=== PATIENT | female | born 2005 | race Two or more races ===

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

== ENCOUNTER 2024-11-29 17:29 | Emergency (ER) | payer MEDICAID ==
[~2024-11-29] VITALS: Ht 157.5 cm; Wt 59.0 kg
--- NOTE | 2024-11-29 17:40 | ECG ---
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
--- NOTE | 2024-11-29 17:48 | ED.PDOC ---
HPI (NEURO) HPI Comments HPI: Poor Historian. 19-year-old female brought in by ambulance from home after a near syncopal episode. There was no loss of consciousness. Patient was busy doing school work standing and she started feeling lightheaded. She assisted herself to the ground. There was no fall or trauma or injury. Patient states that this happens sometimes when she is dehydrated and with the heat exhaustion. EMS described that the home she was in has no air conditioning and it was extremely hot inside the house. Patient has not been drinking enough fluids today. Pre- hospital course vital signs were stable per EMS. Blood sugar was normal. Patient denies any pain or any other symptoms. Past Medical History: Heart murmur Past Surgical History: Denies any REVIEW OF SYSTEMS: CONSTITUTIONAL: Denies acute: fever, diaphoresis, chills, HEAD: Denies acute: headache, photophobia Eyes: Denies acute: Double vision, vision loss, eye pain, eye discharge. EARS: Denies acute: tinnitus, hearing loss, ear discharge, ear pain, THROAT: Denies acute: sore throat, swelling, difficulty swallowing , pain with swallowing, change in voice. NECK: Denies acute: neck pain, neck swelling, stiff neck. HEART: Denies acute : chest pain, palpitations, LUNGS: Denies acute: SOB, wheezing, cough, hemoptysis ABDOMEN: Denies acute: abdominal pain, Nausea, Vomiting, diarrhea, melena , hematemesis, hematochezia SKIN: Denies acute: rash, redness, lesions, itchiness. EXTREMITIES: Denies acute: calf pain, numbness, tingling, weakness, denies pain in extremity. Denies acute: Low back pain. Neuro: Denies acute: focal neurological deficit, motor or sensory focal neurological deficit, tremors, seizure like activity, confusion, change in mental status, loss of bowel or bladder function, cauda equina like symptoms. : Denies acute: dysuria, hematuria, flank pain, increase in urinary frequency. PSYCH: Denies acute: hallucination, suicidal ideation, homicidal ideation. FEMALE: Denies acute: abnormal vaginal bleeding, foul odor, unusual discharge. PHYSICAL EXAM: General: ----no----acute distress, awake and alert. Head: normocephalic, atraumatic. Neck: supple, trachea is midline, no swelling. Throat: Normal phonation. Eyes:, no erythema, no purulent discharge, no proptosis, no icterus. Heart: regular rate, regular rhythm, no significant murmur appreciated. Lungs: no apparent respiratory distress, Able to speak in full sentences. No wheezing, no rhonchi, no crackles. No stridors Clear to auscultation bilaterally. Abdomen: non tender to palpation, non distended, soft, no guarding, no rebound, + bowel sounds. Neuro: Awake, Alert, oriented to name, self, situation, follows commands GCS=15. Speech is normal. Skin: no petechia, no purpura, no cyanosis, non-pale, not jaundice. Lower extremities: --no - Pitting edema no deformity, no focal swelling, no calf TTP. Makes eye contact. moves all four extremities. Face: no apparent facial droop. PERRLA, EOM-I CN 2-12 are grossly intact, No nystagmus. No nuchal rigidity, Kernig's sign, Brudzinski's sign, no meningeal signs. ED COURSE: Chief Complaint: Syncope Time Seen by MD: 17:36 Primary Care Provider: BEATA Information Source: Patient, Emergency Med Personnel Family History Family History: Unknown Social History Smoker: Non-Smoker Was a procedure done? Was a procedure done?: No Differential Diagnosis (SZ) General Weakness: Anemia, CVA, Dehydration, Dysrhythmia, Electrolyte imbalance, Encephalopathy, Guillain-[place], Hypoglycemia, Hypotension, Hypovolemia, Labyrinthitis, Meniere's disease, Myasthenia gravis, Myocardial infarction, Pulmonary embolus, Renal failure, Repiratory failure, TIA, VBI, Vertigo: central, Vertigo: peripheral, Vestibular neuronitis X-Ray, Labs, Meds, VS Vital Signs Date Time Temp Pulse Resp B/P (MAP) Pulse Ox O2 Delivery O2 Flow Rate FiO2 11/29/24 17:54 98.1 91 18 123/73 (90) 100 98.1 11/29/24 17:32 73 Time of 1ST Reevaluation: 00:00 Reevaluation 1ST: Patient Education/Counseling: Other Family Education/Counseling: Other Comments Patient left against medical advice. Departure 1 Departure Time of Disposition: 17:50 Impression: Primary Impression: Near syncope Additional Impression: Left against medical advice Disposition: 07 LEFT AGAINST MEDICAL ADVICE Condition: Guarded Additional Instructions: Patient left AMA Discharged With: Other Critical Care Note Critical Care Time?: No Heart Score Heart Score: Heart Score Response (Comments) Value History N/A 0 EKG N/A 0 Age N/A 0 Risk Factors N/A 0 Troponin N/A 0 Total 0 TERELL MORRISON DO Nov 29, 2024 17:48
[2024-11-29 17:54] VITALS: BP 123/73; PULSE 91; RESP 18; TEMP 98.1; O2SAT 100
== END 2024-11-29 17:49 | disposition left against medical advice (07) ==
LOC: EDBD 17:29 → ER 17:38
DX: R55 Syncope and collapse (principal); R42 Dizziness and giddiness; E86.0 Dehydration
CPT/HCPCS: 93005